=== PATIENT | female | born 1955 | race Caucasian/White ===

== ENCOUNTER → 2025-04-14 | Day surgery (SDC) | payer MEDICARE ==
[2025-04-12 13:42] LABS: BASOPHILS # (AUTO) 0.1 (0.0-0.1); BASOPHILS % 0.8 % (0.0-1.0); EOSINOPHILS # (AUTO) 1.7 (0.0-0.4); EOSINOPHILS % 16.1 % (0.0-6.0); HEMATOCRIT 35.9 % (34.2-44.1); HEMOGLOBIN 11.8 g/dL (12.0-16.0); LYMPHOCYTES # (AUTO) 2.9 (1.0-3.2); LYMPHOCYTES % 27.7 % (18.0-39.1); MEAN CORPUSCULAR HEMOGLOBIN 29.4 pg (28-32); MEAN CORPUSCULAR HGB CONC 32.9 g/dL (31-35); MEAN CORPUSCULAR VOLUME 89.3 fL (81-99); MONOCYTES # (AUTO) 0.7 (0.2-0.8); MONOCYTES % 6.9 % (4.4-11.3); NEUTROPHILS % 48.3 % (38.7-80.0); PLATELET COUNT 274 x10e3/uL (140-360); RED BLOOD COUNT 4.02 x10e6/uL (3.6-5.1); WHITE BLOOD COUNT 10.37 x10e3/uL (4.8-10.8)
[~2025-04-14] MED LIST: ALENDRONATE SOD10 MG PO; AMLODIPINE BESY10 MG PO; ASPIRIN81 MG PO; ATORVASTATIN CA10 MG PO; DIPHENHYDRAMINE HCL INJ 50 MG/ML VIAL ONE; LIDOCAINE HCL 2% LOCAL INJ 5 ML SDV VIAL INJ ONE; LISINOPRIL10 MG PO; METOPROLOL SUCC25 MG PO; PANTOPRAZOLE SO40 MG PO; PROPOFOL IV EMULSION 10 MG/ML 20 ML VIAL ONE; VITAMIN D310 MCG PO; XARELTO10 MG PO
[2025-04-14] MEDS: LACTATED RINGER'S 1,000 ML ONE (07:02)
[2025-04-14 07:57] VITALS: TEMP 97
[2025-04-14 08:25] VITALS: BP 124/88; PULSE 84; RESP 10; O2SAT 98
== END | disposition home or self-care (01) ==
LOC: OR 06:04
PROVIDERS: ATTEND Internal Medicine Gastroenterology
DX: Z12.11 Encounter for screening for malignant neoplasm of colon (principal); K57.30 Diverticulosis of large intestine without perforation or abscess without bleeding; K64.8 Other hemorrhoids; Z83.719 Family history of colon polyps, unspecified; Z87.891 Personal history of nicotine dependence; I11.9 Hypertensive heart disease without heart failure; E78.00 Pure hypercholesterolemia, unspecified; J44.9 Chronic obstructive pulmonary disease, unspecified; Z71.3 Dietary counseling and surveillance; Z68.21 Body mass index [BMI] 21.0-21.9, adult; I73.9 Peripheral vascular disease, unspecified; I47.19 Other supraventricular tachycardia; E55.9 Vitamin D deficiency, unspecified; I49.1 Atrial premature depolarization; I65.23 Occlusion and stenosis of bilateral carotid arteries; Z01.810 Encounter for preprocedural cardiovascular examination; Z01.812 Encounter for preprocedural laboratory examination; Z79.82 Long term (current) use of aspirin; Z79.01 Long term (current) use of anticoagulants; Z79.899 Other long term (current) drug therapy
CPT/HCPCS: 36415; 85025; 93005; G0121; J1200; J2003; J2704; J7121; 45378